=== PATIENT | female | born 1970 | race Caucasian/White ===

== ENCOUNTER 2019-01-15 09:08 | Emergency (ER) | payer BC ==
[2019-01-15 09:15] VITALS: BP 111/71
--- NOTE | 2019-01-15 09:33 | UC ---
Throat Pain/Nasal Guzman HPI - HPI Summary HPI Summary: She has had a waxing and waning sore throat for about 2 weeks. She has had a lot of trouble with sinus congestion in the last year or so and has seen an ENT doctor. She had been on Lupron for fibroids and that was stopped because of the possibility of causing congestion. - History of Current Complaint Chief Complaint: UCGeneralIllness Stated Complaint: SORE THROAT Time Seen by Provider: 01/15/19 09:22 Hx Obtained From: Patient Hx Last Menstrual Period: currently menstruating ?: No Onset/Duration: Gradual Onset, Lasting Weeks Severity: Mild Pain Intensity: 4 Cough: None Associated Signs & Symptoms: Positive: Sinus Discomfort - Chronic - Allergies/Home Medications Allergies/Adverse Reactions: Allergies Allergy/AdvReac Type Severity Reaction Status Date / Time acetaminophen [From Tylenol] Allergy Abdominal Verified 01/15/19 09:18 Pain cobalt Allergy itchy Verified 01/15/19 09:18 latex Allergy itchy Verified 01/15/19 09:18 phenoxyethanol Allergy Hives Uncoded 01/15/19 09:18 Home Medications: Home Medications Venlafaxine TAB (NF) [Effexor TAB (NF)] 1 tab PO DAILY 01/15/19 [History Confirmed 01/15/19] PMH/Surg Hx/FS Hx/Imm Hx Previously Healthy: Yes - Surgical History Surgical History: None - Social History Alcohol Use: Weekly Alcohol Amount: 3 drink per week Substance Use Type: None Smoking Status (MU): Never Smoked Tobacco - Immunization History Most Recent Influenza Vaccination: 11/25/16 Review of Systems All Other Systems Reviewed And Are Negative: Yes Constitutional: Positive: Negative Skin: Positive: Negative ENT: Positive: Sore Throat, Sinus Congestion Respiratory: Positive: Negative Cardiovascular: Positive: Negative Physical Exam - Summary Physical Exam Summary: She is nontoxic in appearance with stable vitals Triage Information Reviewed: Yes Appearance: Well-Appearing Vital Signs: Initial Vital Signs Temp 98.3 F 01/15/19 09:13 Pulse 67 01/15/19 09:13 Resp 16 01/15/19 09:13 BP 111/71 01/15/19 09:13 Pulse Ox 100 01/15/19 09:13 Vital Signs Reviewed: Yes ENT: Positive: Pharyngeal erythema. Negative: Tonsillar swelling, Tonsillar exudate Neck exam: Normal Neck: Positive: Supple, No Lymphadenopathy Respiratory Exam: Normal Throat Pain/Nasal Course/Dx - Course Course Of Treatment: Her RST was negative. This sore throat has gone on a long time for a viral or bacterial infection. She said she has seen some white in her throat although I do not see at today. This may represent ashanti and I recommended we try one dose of Diflucan and have her follow up with the ENT doc's. - Differential Dx/Diagnosis Provider Diagnosis: Ashanti infection of mouth Discharge ED - Sign-Out/Discharge Documenting (check all that apply): Patient Departure All imaging exams completed and their final reports reviewed: No Studies - Discharge Plan Condition: Stable Disposition: HOME Patient Education Materials: Oral Candidiasis (ED) Referrals: Lashonda Conde MD [Primary Care Provider] - - Billing Disposition and Condition Condition: STABLE Disposition: Home
== END 2019-01-15 09:57 | disposition home or self-care (01) ==
LOC: UCEAST 09:08
DX: B37.0 Candidal stomatitis (principal); J02.9 Acute pharyngitis, unspecified; R09.81 Nasal congestion; Z88.8 Allergy status to other drugs, medicaments and biological substances; Z91.09 Other allergy status, other than to drugs and biological substances; Z91.040 Latex allergy status
CPT/HCPCS: 87651; 99212; G0463

== ENCOUNTER 2019-01-22 07:17 | Emergency (ER) | payer BC ==
--- OUTSIDE RECORDS SUMMARY | 2019-01-22 07:24 | XMS REPORT | Continuity of Care Document ---
:1970 External Reference #:[id number] Author Name Lyudmila Garza MD (transmitted by agent of provider Nohemy Ragsdale ) Address [address] [place] [address] Care Team Providers Name Role Phone Aria Conde MD Care Team Information [employer] [phone] Problems Description No Active Problems Social History Type Date Description Comments Sex Unknown Tobacco Use Start: Unknown Never Smoked Cigarettes ETOH Use Occasionally consumes alcohol Recreational Drug Use Denies Drug Use Tobacco Use Start: Unknown Patient has never smoked Smoking Status Reviewed: 12/15/18 Patient has never smoked Exercise Type/Frequency Exercises regularly Seat Belt/Car Seat Always uses seat belt Allergies, Adverse Reactions, Alerts Active Allergies Reaction Severity Comments Date Estrogens 05/03/2016 Peridex Rinse 05/03/2016 Latex sensitive 05/03/2016 Phenoxyethanol 11/09/2017 Medications Active Medications SIG Qnty Indications Ordering Date Provider Venlafaxine HCL Kayla, 12/15/2018 MD Lyudmila 50mg Tablets Lupron Depot Reconstitute as 1units Kayla, 09/13/2017 (3-Month) Directed. Inject 11.25 MD Lyudmila 11.25mg MG Intramuscularly Kit Every 3 Months. Medications Administered in Office Medication SIG Qnty Indications Ordering Provider Date PT SCRN Tbco Id as Non User Lyudmila Garza MD 04/04/2018 Injection PT SCRN Tbco Id as Non User Lyudmila Garza MD 11/09/2017 Injection PT SCRN Tbco Id as Non User Lyudmila Garza MD 09/13/2017 Injection Immunizations Description No Information Available Vital Signs Date Vital Result Comment 12/15/2018 9:56am BP Systolic 116 mmHg BP Diastolic 62 mmHg Height 64.5 inches 5'4.50" Weight 138.00 lb BMI (Body Mass Index) 23.3 kg/m2 Last Menstrual Period [id number] 0 Parity 0 04/04/2018 8:17am BP Systolic 118 mmHg BP Diastolic 72 mmHg Height 64.5 inches 5'4.50" Weight 137.00 lb BMI (Body Mass Index) 23.2 kg/m2 Last Menstrual Period [id number] 0 Parity 0 Results Description No Information Available Procedures Date Code Description Status 09/07/2018 84439003 Mammogram Completed 08/11/2018 04793 Injection Intramuscular Or Subcutaneous Completed Medical Devices Description No Information Available Encounters Description No Information Available Assessments Date Code Description Provider 08/11/2018 N92.0 Excessive and frequent menstruation with Cullen Vela M.D. regular cycle 08/11/2018 N92.0 Excessive and frequent menstruation with Nurses regular cycle Plan of Treatment No Information Available Functional Status Description No Information Available Mental Status Description No Information Available Referrals Description No Information Available
[2019-01-22 07:51] VITALS: BP 96/75
--- NOTE | 2019-01-22 08:11 | UC ---
Throat Pain/Nasal Guzman HPI - HPI Summary HPI Summary: 48-year-old female presents with complaints persistent sore throat. She was seen at this facility on 01/15/2019 for 2 week history of a waxing and waning sore throat. She had a negative rapid strep test at that time. It was thought that her symptoms may be related to a charley infection and she was prescribed a dose of Diflucan. Patient states that her symptoms have been changed since that time. Reports sore throat primarily to the left side with an inflamed tonsil with exudate. Denies fever, chills, nasal congestion, postnasal drip, ear pain, dysphagia, cough, chest pain, shortness of breath, abdominal pain, nausea, or vomiting. - History of Current Complaint Chief Complaint: UCGeneralIllness Stated Complaint: RECHECK OF SORE THROAT Time Seen by Provider: 01/22/19 08:03 Hx Obtained From: Patient Hx Last Menstrual Period: currently menstruating Pain Intensity: 2 - Allergies/Home Medications Allergies/Adverse Reactions: Allergies Allergy/AdvReac Type Severity Reaction Status Date / Time acetaminophen [From Tylenol] Allergy Abdominal Verified 01/22/19 07:40 Pain cobalt Allergy itchy Verified 01/22/19 07:40 latex Allergy itchy Verified 01/22/19 07:40 phenoxyethanol Allergy Hives Uncoded 01/22/19 07:40 PMH/Surg Hx/FS Hx/Imm Hx Previously Healthy: Yes Psychological History: Depression - Surgical History Surgical History: None - Family History Known Family History: Positive: Non-Contributory - Social History Occupation: Employed Full-time Lives: With Family Alcohol Use: Weekly Alcohol Amount: 3 drink per week Substance Use Type: None Smoking Status (MU): Never Smoked Tobacco - Immunization History Most Recent Influenza Vaccination: 11/25/16 Review of Systems All Other Systems Reviewed And Are Negative: Yes Constitutional: Negative: Fever, Chills Skin: Negative: Rash Eyes: Negative: Drainage, Eye Redness ENT: Positive: Sore Throat. Negative: Ear Ache, Nasal Discharge, Sinus Congestion, Sinus Pain/Tenderness Respiratory: Negative: Shortness Of Breath, Cough Cardiovascular: Negative: Chest Pain Gastrointestinal: Negative: Abdominal Pain, Vomiting, Nausea Genitourinary: Positive: Negative Musculoskeletal: Positive: Negative Neurological: Positive: Negative Is Patient Immunocompromised?: No Physical Exam - Summary Physical Exam Summary: GENERAL APPEARANCE: Well developed, well nourished, alert and cooperative, and appears to be in no acute distress. EYES: Conjunctiva clear. No drainage. EARS: External auditory canals and tympanic membranes clear, hearing grossly intact. NOSE: No nasal discharge. THROAT: Mild pharyngeal erythema. Right tonsil without erythema, inflammation, or exudate. Left tonsil 1+ with exudate vs tonsiliths. Uvula midline. NECK: Neck supple, non-tender without lymphadenopathy. CARDIAC: Normal S1 and S2. No S3, S4 or murmurs. Rhythm is regular. There is no peripheral edema, cyanosis or pallor. Extremities are warm and well perfused. Capillary refill is less than 2 seconds. Peripheral pulses intact. LUNGS: Clear to auscultation without rales, rhonchi, wheezing or diminished breath sounds. ABDOMEN: Positive bowel sounds. Soft, nondistended, nontender. No guarding or rebound. No masses or hepatosplenomegally. MUSKULOSKELETAL: ROM intact to all extremities. No joint erythema or tenderness. Normal muscular development. Normal gait. SKIN: Skin normal color, texture and turgor with no lesions or eruptions. Triage Information Reviewed: Yes Vital Signs: Initial Vital Signs Temp 98.9 F 01/22/19 07:41 Pulse 60 01/22/19 07:41 Resp 18 01/22/19 07:41 BP 96/75 01/22/19 07:41 Pulse Ox 98 01/22/19 07:41 Vital Signs Reviewed: Yes Throat Pain/Nasal Course/Dx - Course Course Of Treatment: 48-year-old female presents with complaints persistent sore throat. She was seen at this facility on 01/15/2019 for 2 week history of a waxing and waning sore throat. She had a negative rapid strep test at that time. It was thought that her symptoms may be related to a charley infection and she was prescribed a dose of Diflucan. Patient states that her symptoms have been changed since that time. Reports sore throat primarily to the left side with an inflamed tonsil with exudate. Denies fever, chills, nasal congestion, postnasal drip, ear pain, dysphagia, cough, chest pain, shortness of breath, abdominal pain, nausea, or vomiting. Afebrile. Vital signs stable. Patient's exam is remarkable for some mild pharyngeal erythema with a 1+ left tonsil with exudate versus tonsillith, normal right tonsil, no cervical lymphadenopathy, and otherwise unremarkable exam. Rapid strep test was repeated and was negative. Results were reviewed with the patient. We discussed that the rapid strep test was specific for screening for a strep A infection and that we should rule out other potential causes. A throat culture and Monospot were obtained and are pending. Encouraged patient to follow up with ENT as soon as possible for further evaluation especially if the throat culture and Monospot are negative. Hem recommending continued symptomatic treatment at this time. Anticipatory guidance and warning symptoms were reviewed with the patient. Verbalized understanding agrees with plan of care. - Differential Dx/Diagnosis Differential Diagnosis/HQI/PQRI: Mononucleosis, Peritonsillar Abscess, Pharyngitis, Tonsillitis, URI Provider Diagnosis: Pharyngitis Discharge ED - Sign-Out/Discharge Documenting (check all that apply): Patient Departure All imaging exams completed and their final reports reviewed: No Studies - Discharge Plan Condition: Stable Disposition: HOME Patient Education Materials: Pharyngitis (ED) Referrals: Lashonda Conde MD [Primary Care Provider] - Santiago Grant MD [Medical Doctor] - As Soon As Possible (Call for appointment. ) Additional Instructions: Your rapid strep test in the clinic today was negative. We will send a throat culture today to see if there is another source of infection that may account for your symptoms. We will also test you for mononucleosis considering the duration or your symptoms. Use salt water gargles several times a day. Take over the counter acetaminophen (Tylenol) or ibuprofen (Advil, Motrin) according to directions as needed for pain or fever. You may also use Chloraseptic spray or Cepacol lonzenges according to directions which contain a numbing medication and can provide some temporary relief from your sore throat. Return here or follow up with the Ear, Nose, and Throat (ENT) specialist as soon as possible. Call today for an appointment. Seek immediate medical attention in the emergency room if you have fever greater than 100.5 F despite taking acetaminophen or ibuprofen, are unable to swallow or develop drooling, are unable to open your mouth fully, are unable to eat or drink, have pain that is not relieved with over the counter pain medication, or have any difficulty breathing. - Billing Disposition and Condition Condition: STABLE Disposition: Home
[2019-01-23 11:37] LABS: EBV Capsid Ag IgG Ab Positive (Negative); EBV Capsid Ag IgM Ab Negative (Negative); Epstein-Barr Nuclear Antigen Positive (Negative)
--- NOTE | 2019-01-23 20:54 | UC ---
- Progress Note Progress Note: Monospot/[place] reviewed. Monospot was negative. The testing shows an infection with the [place] virus in the past but no current infection. No change in plan of care. Course/Dx - Diagnoses Provider Diagnoses: Pharyngitis Discharge ED - Sign-Out/Discharge Documenting (check all that apply): Post-Discharge Follow Up All imaging exams completed and their final reports reviewed: No Studies - Discharge Plan Condition: Stable Disposition: HOME Patient Education Materials: Pharyngitis (ED) Referrals: Santiago Grant MD [Medical Doctor] - As Soon As Possible (Call for appointment. ) Lashonda Conde MD [Primary Care Provider] - Additional Instructions: Your rapid strep test in the clinic today was negative. We will send a throat culture today to see if there is another source of infection that may account for your symptoms. We will also test you for mononucleosis considering the duration or your symptoms. Use salt water gargles several times a day. Take over the counter acetaminophen (Tylenol) or ibuprofen (Advil, Motrin) according to directions as needed for pain or fever. You may also use Chloraseptic spray or Cepacol lonzenges according to directions which contain a numbing medication and can provide some temporary relief from your sore throat. Return here or follow up with the Ear, Nose, and Throat (ENT) specialist as soon as possible. Call today for an appointment. Seek immediate medical attention in the emergency room if you have fever greater than 100.5 F despite taking acetaminophen or ibuprofen, are unable to swallow or develop drooling, are unable to open your mouth fully, are unable to eat or drink, have pain that is not relieved with over the counter pain medication, or have any difficulty breathing. - Billing Disposition and Condition Condition: STABLE Disposition: Home
== END 2019-01-22 08:52 | disposition home or self-care (01) ==
LOC: UCEAST 07:17
DX: J02.9 Acute pharyngitis, unspecified (principal); Z88.8 Allergy status to other drugs, medicaments and biological substances; Z91.09 Other allergy status, other than to drugs and biological substances; Z91.040 Latex allergy status
CPT/HCPCS: 36415; 86308; 86664; 86665; 87070; 87651; 99211; G0463

== ENCOUNTER 2021-04-15 10:32 | Observation (INO) ==
[~2021-04-15 10:32] MED LIST: Clindamycin 900 MG/D5W BAG IVPB ONE
[2021-04-15] MEDS ORDERED: Ondansetron 4 mg VIAL 2 MG/ML 2 ml VIAL ONE (10:48)
[2021-04-15] MEDS ORDERED: oxyCODONE SR 10 mg TAB ONE (10:48)
[2021-04-15] MEDS ORDERED: Scopolamine 1 mg/72hr PATCH ONE (10:49)
[2021-04-15 11:36] LABS: Hematocrit 36 % (35-47); Hemoglobin 12.2 g/dL (12.0-16.0); Mean Corpuscular HGB Conc 34 g/dL (31-36); Mean Corpuscular Hemoglobin 30 pg (27-31); Mean Corpuscular Volume 87 fL (80-97); Mean Platelet Volume 8.1 fL (7.4-10.4); Platelet Count 213 10^3/uL (150-450); Red Blood Count 4.15 10^6 /uL (3.70-4.87); Red Cell Distribution Width 15 % (10-15); White Blood Count 5.3 10^3/uL (3.5-10.8)
[2021-04-15 11:41] LABS: Activated Partial Thrombo Time 33.2 seconds (26.0-38.0); INR 1.07 (0.86-1.15)
[2021-04-15] MEDS ORDERED: Lidocaine 1% MPF 5 ML VIAL ONE (11:44)
[2021-04-15] MEDS ORDERED: NITROGLYCERIN DRIP ONE (12:00)
[2021-04-15 12:08] LABS: HCG Pregnancy < 0.60 mIU/mL
[2021-04-15 12:13] LABS: Anion Gap 4 mmol/L (2-11); Blood Urea Nitrogen 19 mg/dL (6-24); CO2 Carbon Dioxide 28 mmol/L (22-32); Chloride 106 mmol/L (101-111); Glucose 82 mg/dL (70-100); Potassium 4.8 mmol/L (3.5-5.0); Sodium 138 mmol/L (135-145)
[2021-04-15] MEDS ORDERED: Heparin 2 UNITS/ML IVPREMIX 3,000 UNIT/1,500 ML BAG IV ONE (12:22)
[2021-04-15] MEDS ORDERED: fentaNYL 100 mcg/2 ml 50 MCG/ML VIAL ONE (12:22)
[2021-04-15] MEDS ORDERED: Midazolam 5 mg/5 ml VIAL 1 mg/ml 5 ml VIAL (5 mg) ONE (12:22)
[2021-04-15] MEDS ORDERED: Heparin 1,000 UNIT/ML 10 ml (10,000 UNITS) CATHLAB/DIALYSIS ONE (12:22)
[2021-04-15] MEDS ORDERED: Iohexol 350 (CONTRAST) 200 ML MDV IV ONE (12:31)
[2021-04-15] MEDS ORDERED: HYDROmorphone 0.5 MG/0.5 ML SYRINGE ONE (14:06)
[2021-04-15] MEDS ORDERED: Prochlorperazine 5 mg/ml 2 ml VIAL (10 mg) ONE (14:37)
[2021-04-15] MEDS ORDERED: HYDROmorphone PCA 20 MG/20 ML PCA.SYRING PCA SCH (15:00)
[2021-04-15] MEDS ORDERED: NS 0.9% 1,000 ML IV SCH (18:45)
[2021-04-15] MEDS: Ondansetron 4 mg VIAL 2 MG/ML 2 ml VIAL IV SCH (20:25)
[2021-04-16] MEDS: Ondansetron 4 mg VIAL 2 MG/ML 2 ml VIAL IV SCH ×2 (00:47→07:39)
[2021-04-16 07:38] VITALS: BP 133/64
[2021-04-16] MEDS ORDERED: HYDROcodone/ACETAMIN 5/325 mg TAB PO PRN (08:55)
[2021-04-16] MEDS ORDERED: Ketorolac 10 mg TAB (NF) PO SCH (09:00)
== END 2021-04-16 11:55 | disposition home or self-care (01) ==
LOC: SSU 10:32 → CHICATH 10:32
PROVIDERS: ADMIT Internal Medicine; ATTEND Internal Medicine
PROC: ANG.UFE (2021-04-15 13:10)